=== PATIENT | male | born 1960 | race Caucasian/White ===

== ENCOUNTER 2020-12-13 09:10 | Inpatient (IN) | payer OTHER, SELFPAY ==
[~2020-12-13] VITALS: Ht 182.9 cm; Wt 122.5 kg
[2020-12-13 09:20] VITALS: BP_SYST 160
--- NOTE | 2020-12-13 09:30 | NUR ---
Placed in room 6 . Placed on engine monitor, blood pressure machine and pulse oximeter. To gown for exam. Side rails up. Report given to MARCOS Chauhan.
--- NOTE | 2020-12-13 09:36 | NUR ---
PT COMES FROM HOME FOR INCREASED SOB SINCE Dec, REPORTS GENERALIZED WEAKNESS AND FEELING TIRED. PT TACHYPNIC AT 26BREATHS/MIN, ON RA @88%, PLACED ON 02-8L VIA NC @ 93%. RT AT BEDSIDE, DR MONSON INFORMED. COVID CLAIRE TEST DONE, TOLERATED WELL. DENIES ANY FEVERS/CHILLS. SKIN W/D/I. WILL CONT TO MONITOR CLOSELY.
--- NOTE | 2020-12-13 09:43 | NUR ---
DR MONSON AT BEDSIDE FOR EXAM
--- NOTE | 2020-12-13 10:02 | NUR ---
IV PLACED-PATENT TO LT AC, FLUSHED 10CC. TOLERATED WELL.
[2020-12-13 10:30] LABS: BASOPHILS % (AUTO) 0.2 % (0.0-2.0); EOSINOPHILS % (AUTO) 0.1 % (0.0-4.0); HEMATOCRIT 45.2 % (36-54); HEMOGLOBIN 15.2 g/dL (14.0-18.0); LYMPHOCYTES # (AUTO) 0.9 K/uL (1.0-5.5); MEAN CORPUSCULAR HEMOGLOBIN 30 pg (27-31); MEAN CORPUSCULAR HGB CONC 34 % (32-36); MEAN CORPUSCULAR VOLUME 90 fL (79.0-98.0); MONOCYTES # (AUTO) 0.5 K/uL (0.0-1.0); MONOCYTES % (AUTO) 9.6 % (1.7-9.3); NEUTROPHILS # (AUTO) 3.7 K/uL (1.8-7.7); NEUTROPHILS % (AUTO) 73.1 % (40.0-70.0); PLATELET COUNT (AUTO) 150 K/uL (130-430); RED CELL DISTRIBUTION WIDTH 14.4 % (9.0-15.0); WHITE BLOOD COUNT (AUTO) 5.1 K/uL (4.8-10.8)
[2020-12-13 10:47] LABS: CALCIUM 8.2 mg/dL (8.4-11.0); CREATININE 0.96 mg/dL (0.55-1.30); POTASSIUM 4.1 mmol/L (3.5-5.1)
[2020-12-13 10:51] LABS: ALBUMIN 2.9 g/dL (3.4-4.8); TOTAL BILIRUBIN 0.4 mg/dL (0.0-1.0)
[2020-12-13 10:59] LABS: INR 0.9 (0.80-1.20); PROTHROMBIN TIME 9.9 SECS (9.5-12.5)
[2020-12-13 11:14] LABS: C-REACTIVE PROTEIN QUANT 13.1 mg/dL (0-0.5)
--- NOTE | 2020-12-13 11:23 | NUR ---
CA;LED AND I GAVVE HER AN UPDATE. EVA CHUNG.
--- NOTE | 2020-12-13 12:06 | NUR ---
NO ACUTE CHANGES , PT AWARE OF PLAN OF CARE, VERBALIZED UNDERSTANDING. VSS, DENIES ANY SOB AT THSI TIME. ON O2-8L VIA NC @ 92%
[2020-12-13] MEDS ORDERED: IPRATROPIUM BROM 0.5 MG/2.5 ML VIAL.NEB (ATROVENT) INH PRN ×2 (12:45→14:00)
[2020-12-13] MEDS ORDERED: ALBUTEROL SULFATE 0.083% 2.5 MG/3 ML VIAL.NEB INH PRN ×2 (12:45→14:00)
--- NOTE | 2020-12-13 12:52 | NUR ---
Transfer to TELE via ACLS protocol. Licensed nurse present. IV present no signs or symptoms of infiltration.
[2020-12-13 13:00] VITALS: BP_SYST 149
[2020-12-13] MEDS ORDERED: IPRATROPIUM BROM 0.5 MG/2.5 ML VIAL.NEB (ATROVENT) INH SCH (13:00)
[2020-12-13] MEDS ORDERED: ALBUTEROL SULFATE 0.083% 2.5 MG/3 ML VIAL.NEB INH SCH (13:00)
--- NOTE | 2020-12-13 13:05 | NUR ---
CONSULTATION PAGED REASON FOR CONSULTATION::COVID WAS CONSULT CALLED?Y PERSON WHO WAS NOTIFIED: MAREK CONSULTING PHYSICIAN:JUAN CARLOS MARVIN JAVA J2EE TECHNICAL LEAD SPECIALTY:INFECTIOUS DIASEASE JAVA J2EE TECHNICAL LEAD PHONE NUMBER:[phone] REQUESTING PHYSICIAN:ROWAN BRADFORD
--- NOTE | 2020-12-13 13:13 | NUR ---
CONSULTATION PAGED REASON FOR CONSULTATION::PNEUMONIA WAS CONSULT CALLED?Y PERSON WHO WAS NOTIFIED: BRYAN CONSULTING PHYSICIAN:LISA BROOKE CAR RETARDER OPERATOR SPECIALTY:PULMONARY CAR RETARDER OPERATOR PHONE NUMBER:[phone] REQUESTING PHYSICIAN:ROWAN BRADFORD
--- NOTE | 2020-12-13 13:37 | NUR ---
Admission Note Received patient from ER with diagnosis of COVID PNA. Initial Plan of Care discussed-patient verbalized understanding.. Oriented to room, call light, pain management and safety. vitsls stable.. on oxygen 8 l simple mask saturation 94%. denies any sob at this time.res even and unlabored.safety fall precautions in place. bed locked and in low position. bed alarm on. will continue to monitor
[2020-12-13 14:00] VITALS: BP_SYST 128
[2020-12-13] MEDS: DEXAMETHASONE SOD PHOSPHATE 10 MG/ML VIAL IVP SCH (14:15)
[2020-12-13] MEDS: cefTRIAXone 1 GM in D5W 50 ML IV SCH (14:15)
[2020-12-13] MEDS: AZITHROMYCIN 500 MG in NS 250 ML IV SCH (14:35)
[2020-12-13] MEDS ORDERED: ALBUTEROL MDI INHALATION 8 GM INH INH PRN (14:45)
--- NOTE | 2020-12-13 15:00 | NUR ---
rounds pt stable continue on 8 l simple mask . saturation 93%. encouraged deep breathing. kept comfortable. pt son called updated with pt status.. kept comfortable.not in acute res distress. will conitnue to monitor
[2020-12-13 16:30] VITALS: BP_SYST 146
[2020-12-13] MEDS ORDERED: ENOXAPARIN SODIUM 40 MG/0.4 ML SYRINGE SUBCUT ONE (16:30)
--- NOTE | 2020-12-13 16:40 | NUR ---
MD CALLED CALLED DR GOODE AND INFORMED ABOUT PT STATUS.NEW ORDER RECEIVED
--- NOTE | 2020-12-13 17:30 | NUR ---
ROUNDS PT STABLE DENIES ANY PAIN OR SOB. PTIS EATING .PT PLACED ON HIGH FLOW BY RT KEHINDE FI02 60 %. O2 SATURATION 93%. KEPT COMFORTABLE. DUE MEDS GIVEN ORDERED. KEPT COMFORTABLE
--- NOTE | 2020-12-13 17:40 | NUR ---
HIGH ALERT NOTE: Called Dr. GOODE back at identified within the medical roster to verify physician authenticity.
[2020-12-13] MEDS: ALBUTEROL MDI INHALATION 8 GM INH INH SCH (17:50)
[2020-12-13] MEDS ORDERED: ATEN-41 PO (17:56)
--- NOTE | 2020-12-13 19:46 | NUR ---
CLOSING NOTES PT STABLE NOT IN ACUTE DISTRESS. CONTINUE ON HIGH FLOW 60% SATURATION 93%. PT COMFORTABLE. DR ALVAREZ BEEN NOTIFIED BY DIRECTOR EXECUTIVE COMMUNICATIONS NURSE FOR HIGH FLOW OXYGEN..NO S/ S OF RES DISTRESS NOTED. SAFETY/FALL PRECAUTIONS IN PLACE. REPORT GIVEN TO NIGHT NURSE.
[2020-12-13 20:00] VITALS: BP_SYST 147
--- NOTE | 2020-12-13 20:00 | NUR ---
Opening notes/MD killian Pt AAOx4, O2 sat 91-92% on high flow 60%. No s/s distress noted. Dr. Mir killian. Pt instructed on I.S. use 10xhr while awake, pt verbalized understanding. IV saline lock L. AC 20G clear and patent. Call light within reach. Bed low, locked, siderails up x2. Droplet isolation maintained. To monitor.
[2020-12-13] MEDS ORDERED: NOR10 PO (20:46)
[2020-12-13] MEDS: ASCORBIC ACID 500 MG TABLET PO SCH (20:49)
--- NOTE | 2020-12-13 21:30 | NUR ---
Received call from Received call from pt's Gianni updated.
[2020-12-14] VITALS: BP_SYST 140
[2020-12-14] MEDS: ALBUTEROL MDI INHALATION 8 GM INH INH SCH ×4 (00:40→17:24)
--- NOTE | 2020-12-14 01:35 | NUR ---
Rounds Pt asleep, oxygen on. No s/s distress noted. Call light within reach. Bed low, locked, siderails up x2. To monitor.
--- NOTE | 2020-12-14 02:15 | NUR ---
Ambulated to bathroom Assisted pt to ambulate to bathroom on simple face mask 8L, O2 desat to 85% SOB upon returning to bed. Pt had a BM. O2 sat back up to 92% on high flow. Call light within reach. To monitor.
--- NOTE | 2020-12-14 06:25 | NUR ---
Closing notes Pt AAOx4, O2 sat 90-93% on high flow 60%. No s/s distress noted. IV saline locked L. AC 20G clear and patent. Urinal at bedside. Call light within reach. To endorse to AM nurse.
[2020-12-14 08:00] VITALS: BP_SYST 147
--- NOTE | 2020-12-14 08:00 | NUR ---
A/Ox4,afebrile,vss,on high flow nasal cannula 60%,sat 92,sitting on edge of bed, needs attended,call light & personal items within pt reach,safety maintained.
[2020-12-14] MEDS: ENOXAPARIN SODIUM 40 MG/0.4 ML SYRINGE SUBCUT SCH ×2 (08:52→20:19)
[2020-12-14] MEDS: ASCORBIC ACID 500 MG TABLET PO SCH ×2 (08:53→20:18)
[2020-12-14] MEDS: BARICITINIB -Non-Formulary 2 MG TABLET PO SCH (08:53)
[2020-12-14] MEDS: CHOLECALCIFEROL (VITAMIN D3) 5,000 UNIT TABLET PO SCH (08:56)
--- NOTE | 2020-12-14 10:00 | NUR ---
give am meds due,pt tolerated and compliant of meds well.desat to 85% dillon wheeler called and notified,orders received and noted.
[2020-12-14 12:00] VITALS: BP_SYST 127
--- NOTE | 2020-12-14 12:00 | NUR ---
vss,pt resting in bed,instructed pt use of incentive spirometry and pt inhaled 500-750ml volume hourly rounds made,safety maintainted.
[2020-12-14] MEDS: DEXAMETHASONE SOD PHOSPHATE 10 MG/ML VIAL IVP SCH (13:09)
[2020-12-14] MEDS: cefTRIAXone 1 GM in D5W 50 ML IV SCH (13:09)
--- NOTE | 2020-12-14 14:00 | NUR ---
GIVE IV ANTIBIOTIC DUE,NO ADVERSE REACTIONS NOTED,PIV 20 GUAGE IN LEFT ANTECUBITAL REMAINS PATENT AND INTACT.
[2020-12-14] MEDS: AZITHROMYCIN 500 MG in NS 250 ML IV SCH (14:35)
[2020-12-14 16:00] VITALS: BP_SYST 140
[2020-12-14 20:05] VITALS: BP_SYST 133
--- NOTE | 2020-12-14 20:10 | NUR ---
Opening notes Pt AAOx4, O2 sat 95% on high flow 70%. No s/s distress noted. Pt instructed on I.S. use 10xhr while awake, pt verbalized understanding. IV saline lock L. AC 20G clear and patent. Call light within reach. Bed low, locked, siderails up x2. Droplet isolation maintained. To monitor.
[2020-12-15 00:15] VITALS: BP_SYST 145
--- NOTE | 2020-12-15 00:15 | NUR ---
Ambulated to bathroom Pt to ambulate to bathroom on simple face mask 8L, O2 desat to 85% SOB upon returning to bed. O2 sat back up to 92% on high flow. Pt had a BM. Call light within reach. To monitor.
--- NOTE | 2020-12-15 05:47 | NUR ---
Sancho Moy s/w [place]. MARCOS Grant spoke to
--- NOTE | 2020-12-15 06:30 | NUR ---
Closing notes Pt awake, sitting up at edge of bed, no s/s distress noted. Pt on high flow O2 satting at 92-95%. IV saline locked L. AC clear and patent. Call light within reach. To endorse to AM nurse.
[2020-12-15] MEDS: ALBUTEROL MDI INHALATION 8 GM INH INH SCH ×3 (07:26→18:00)
[2020-12-15 07:35] LABS: ALBUMIN 3.1 g/dL (3.4-4.8); C-REACTIVE PROTEIN QUANT 6.1 mg/dL (0-0.5); CALCIUM 8.4 mg/dL (8.4-11.0); CREATININE 0.96 mg/dL (0.55-1.30); POTASSIUM 4.1 mmol/L (3.5-5.1); TOTAL BILIRUBIN 0.4 mg/dL (0.0-1.0)
[2020-12-15 08:00] VITALS: BP_SYST 132
[2020-12-15] MEDS: BARICITINIB -Non-Formulary 2 MG TABLET PO SCH (08:42)
[2020-12-15] MEDS: ASCORBIC ACID 500 MG TABLET PO SCH ×2 (08:42→21:11)
[2020-12-15] MEDS: CHOLECALCIFEROL (VITAMIN D3) 5,000 UNIT TABLET PO SCH (08:42)
[2020-12-15] MEDS: ENOXAPARIN SODIUM 40 MG/0.4 ML SYRINGE SUBCUT SCH ×2 (08:44→21:11)
[2020-12-15] MEDS: cefTRIAXone 1 GM in D5W 50 ML IV SCH (12:51)
[2020-12-15] MEDS: DEXAMETHASONE SOD PHOSPHATE 10 MG/ML VIAL IVP SCH (12:52)
[2020-12-15 12:58] VITALS: BP_SYST 139
[2020-12-15] MEDS: AZITHROMYCIN 500 MG in NS 250 ML IV SCH (14:54)
[2020-12-15 16:52] VITALS: BP_SYST 135
--- NOTE | 2020-12-15 19:24 | NUR ---
CLOSING NOTE PT A/OX4,DESAT 88% THIS AM AND INCREASED O2 HFNC TO 80% FIO2,SAT UP TO 95% NEEDS ATTENDED,CALL LIGHT & PERSONAL ITEMS WITHIN PT REACH,SAFETY MAINTAINED PIV 20 GAUGE IN LEFT ANTECUTIBAL PATENT AND INTACT,BUT GETS POSITIONAL WITH IV MEDS INFUSION.START ANOTHER IV IN RIGHT HAND 20 GAUGE X1 ATTEMPT.AND CONTINUE IV ANTIBIOTICS DUE,NO ADVERSE REACTIONS NOTED.HOURLY ROUNDS MADE,CONTINUE TO MONITOR PT.
[2020-12-15 20:00] VITALS: BP_SYST 143
--- NOTE | 2020-12-15 22:00 | NUR ---
ROUNDING NOTES Patient resting in bed - no s/s pain or distress noted. Respirations even and unlabored - head of bed elevated HI FLOW 80%. IV site patent - no s/s redness, infection, or infiltration. Bed locked and in lowest position. Call light within reach.
[2020-12-16 00:30] VITALS: BP_SYST 149
[2020-12-16] MEDS: ALBUTEROL MDI INHALATION 8 GM INH INH SCH ×4 (07:20→20:28)
[2020-12-16 08:09] LABS: ALBUMIN 2.9 g/dL (3.4-4.8); CALCIUM 8.8 mg/dL (8.4-11.0); CREATININE 0.82 mg/dL (0.55-1.30); POTASSIUM 3.8 mmol/L (3.5-5.1); TOTAL BILIRUBIN 0.4 mg/dL (0.0-1.0)
[2020-12-16] MEDS: CHOLECALCIFEROL (VITAMIN D3) 5,000 UNIT TABLET PO SCH (08:27)
[2020-12-16] MEDS: ASCORBIC ACID 500 MG TABLET PO SCH ×2 (08:27→20:19)
[2020-12-16] MEDS: BARICITINIB -Non-Formulary 2 MG TABLET PO SCH (08:28)
[2020-12-16 08:34] VITALS: BP_SYST 129
[2020-12-16] MEDS: ENOXAPARIN SODIUM 40 MG/0.4 ML SYRINGE SUBCUT SCH ×2 (08:45→20:26)
[2020-12-16 09:48] VITALS: BP_SYST 129
[2020-12-16 11:42] VITALS: BP_SYST 150
[2020-12-16] MEDS: DEXAMETHASONE SOD PHOSPHATE 10 MG/ML VIAL IVP SCH (13:04)
[2020-12-16] MEDS: cefTRIAXone 1 GM in D5W 50 ML IV SCH (13:04)
--- NOTE | 2020-12-16 13:08 | NUR ---
Dietitian Recommendations * Recommend 2 gm Na diet w/ Ensure High Protein BID (ONS provides 320 kcal/day, 32 gm protein/day) MARCELA, ETSS Please refer to Nutrition Assessment for details. Addendum: 12/16/20 at [address] Amended: Links added.
--- NOTE | 2020-12-16 13:11 | NUR ---
MEDICATION PATIENTS SCHEDULED MEDICATION GIVEN PER ORDER. PATIENT IS AWAKE AND ALERT STILL HAVING SOB. PATIENT IS ON HIGH FLOW AT 80% PATIENT STATES HE IS USING IS GETS TO ABOUT 1000. PATIENT ALSO STATES HE DOES STAND AT BED SIDE FOR SHORT PERIODS, SITS AT EDGE OF BED. ALL SAFETY PRECAUTIONS IN PLACE. CALL LIGHT IS WITH HIM EDUCATED TO USE FOR ASSISTANCE.
[2020-12-16] MEDS: AZITHROMYCIN 500 MG in NS 250 ML IV SCH (15:02)
--- NOTE | 2020-12-16 15:08 | NUR ---
medication patients scheduled medication given per order. patient is awake and alert, still has some sob,but spo2 is 91%. patient has all safety precautions in place. call light is with him. no other needs at this time.
[2020-12-16 16:52] VITALS: BP_SYST 147
--- NOTE | 2020-12-16 18:46 | NUR ---
RN CLOSING NOTE PATIENT IS AWAKE AND ALERT SITTING UP IN BED. PATIENT HAS ALL SAFETY PRECAUTIONS IN PLACE. EDUCATED TO USE CALL LIGHT FOR ASSISTANCE. CALL LIGHT IS WITH HIM. PATIENT IS ON HIGH FLOW OXYGEN AT 80%. PATIENT HAS NO OTHER NEEDS AT THIS TIME.
[2020-12-16 20:00] VITALS: BP_SYST 140
[2020-12-17 00:37] VITALS: BP_SYST 135
--- NOTE | 2020-12-17 01:59 | NUR ---
REPLACED BATTERY FOR MONITOR . PATIENT DENIED SHORTESS OF BREATH, NO APPARENT SIGN OF DISTRESS
--- NOTE | 2020-12-17 02:23 | NUR ---
PT REFUSED TO USE THE COMMODE AND INSISTED ON WALKING TO THE BATHROOM . RN EXPLAINED THAT IT IS NOT SAFE TO WALK TO THE BATHROOM HIS OXYGEN LEVEL COULD DROP TOO LOW AND HE CAN PASSED OUT IN THE BATHROOM. HE INSITED TO DO AND REFUSED TO USE THE COMMODE FOR BM
[2020-12-17 07:24] LABS: HEMATOCRIT 44.3 % (36-54); HEMOGLOBIN 15.2 g/dL (14.0-18.0); LYMPHOCYTES # (AUTO) 0.9 K/uL (1.0-5.5); LYMPHOCYTES % (AUTO) 9.9 % (20.5-51.5); MEAN CORPUSCULAR HEMOGLOBIN 30 pg (27-31); MEAN CORPUSCULAR HGB CONC 34 % (32-36); MEAN CORPUSCULAR VOLUME 89 fL (79.0-98.0); MONOCYTES # (AUTO) 0.6 K/uL (0.0-1.0); MONOCYTES % (AUTO) 7.1 % (1.7-9.3); NEUTROPHILS # (AUTO) 7.2 K/uL (1.8-7.7); PLATELET COUNT (AUTO) 332 K/uL (130-430); RED BLOOD CELL COUNT(AUTO) 5.01 MIL/uL (4.2-6.2); RED CELL DISTRIBUTION WIDTH 13.8 % (9.0-15.0); WHITE BLOOD COUNT (AUTO) 8.6 K/uL (4.8-10.8)
[2020-12-17] MEDS: ALBUTEROL MDI INHALATION 8 GM INH INH SCH ×3 (07:46→19:46)
[2020-12-17 08:30] VITALS: BP_SYST 130
[2020-12-17 08:32] LABS: CREATININE 0.92 mg/dL (0.55-1.30); POTASSIUM 4.3 mmol/L (3.5-5.1); TOTAL BILIRUBIN 0.4 mg/dL (0.0-1.0)
[2020-12-17] MEDS: CHOLECALCIFEROL (VITAMIN D3) 5,000 UNIT TABLET PO SCH (08:50)
[2020-12-17] MEDS: ENOXAPARIN SODIUM 40 MG/0.4 ML SYRINGE SUBCUT SCH ×2 (08:50→20:42)
[2020-12-17] MEDS: ASCORBIC ACID 500 MG TABLET PO SCH ×2 (08:50→20:28)
--- NOTE | 2020-12-17 08:50 | NUR ---
Scheduled medications given per order. Patient stable; sitting on side of bed with no distress noted.
[2020-12-17] MEDS: BARICITINIB -Non-Formulary 2 MG TABLET PO SCH (10:03)
--- NOTE | 2020-12-17 10:04 | NUR ---
Scheduled medication given. Patient stable at this time.
[2020-12-17 12:40] VITALS: BP_SYST 136
[2020-12-17] MEDS: cefTRIAXone 1 GM in D5W 50 ML IV SCH (12:57)
[2020-12-17] MEDS: DEXAMETHASONE SOD PHOSPHATE 10 MG/ML VIAL IVP SCH (12:57)
--- NOTE | 2020-12-17 12:58 | NUR ---
Scheduled IV abx and IVP medications given per order. Patient stable; resting comfortably in bed with no respiratory distress noted.
[2020-12-17 14:28] LABS: C-REACTIVE PROTEIN QUANT 1.4 mg/dL (0-0.5)
[2020-12-17] MEDS: AZITHROMYCIN 500 MG in NS 250 ML IV SCH (14:56)
--- NOTE | 2020-12-17 14:56 | NUR ---
Scheduled IV abx given per order. Patient sitting on side of bed at this time. Stable with no distress noted.
[2020-12-17 16:05] VITALS: BP_SYST 138
--- NOTE | 2020-12-17 17:45 | NUR ---
Scheduled IV medication given per order. Patient stable; resting comfortably in bed at this time.
--- NOTE | 2020-12-17 18:12 | NUR ---
Patient stable throughout shift.
[2020-12-17 20:42] VITALS: BP_SYST 141
--- NOTE | 2020-12-17 22:00 | NUR ---
Rounds Patient sleeping to the side on high flow oxygen oxygen saturation 95% , no sign of acute respiratory distress
[2020-12-18] MEDS: ALBUTEROL MDI INHALATION 8 GM INH INH SCH ×4 (00:49→23:07)
[2020-12-18 01:25] VITALS: BP_SYST 127
--- NOTE | 2020-12-18 01:44 | NUR ---
Rounds Patient sleeping NSB on the monitor oxygen saturation on high flow 70% is 95%,no SOB will continue to monitor
--- NOTE | 2020-12-18 04:05 | NUR ---
Patient is awake sitting in the edge of the bed slept well as verbalized no SOB oxygen saturation 95 to 96% on Hi flow 70% will monitor.
[2020-12-18 08:00] VITALS: BP_SYST 140
--- NOTE | 2020-12-18 08:00 | NUR ---
Morning rounds: PATIENT IS AWAKE AND ALERT SITTING UP IN BED. PATIENT HAS ALL SAFETY PRECAUTIONS IN PLACE. EDUCATED TO USE CALL LIGHT FOR ASSISTANCE. CALL LIGHT IS WITH HIM. PATIENT IS ON HIGH FLOW OXYGEN AT 70%. BREAKFAST AT BEDSIDE. PATIENT HAS NO OTHER NEEDS AT THIS TIME.
[2020-12-18] MEDS: CHOLECALCIFEROL (VITAMIN D3) 5,000 UNIT TABLET PO SCH (09:47)
[2020-12-18] MEDS: ASCORBIC ACID 500 MG TABLET PO SCH ×2 (09:47→20:29)
[2020-12-18] MEDS: ENOXAPARIN SODIUM 40 MG/0.4 ML SYRINGE SUBCUT SCH ×2 (09:54→20:29)
[2020-12-18 10:37] LABS: ALBUMIN 2.8 g/dL (3.4-4.8); CALCIUM 8.5 mg/dL (8.4-11.0); CREATININE 0.94 mg/dL (0.55-1.30); POTASSIUM 3.9 mmol/L (3.5-5.1); TOTAL BILIRUBIN 0.5 mg/dL (0.0-1.0)
[2020-12-18] MEDS: BARICITINIB -Non-Formulary 2 MG TABLET PO SCH (11:29)
[2020-12-18 12:00] VITALS: BP_SYST 132
--- NOTE | 2020-12-18 12:00 | NUR ---
Lunch rounds: PATIENT IS AWAKE AND ALERT SITTING UP IN BED. PATIENT HAS ALL SAFETY PRECAUTIONS IN PLACE. EDUCATED TO USE CALL LIGHT FOR ASSISTANCE. CALL LIGHT IS WITH HIM. PATIENT IS ON HIGH FLOW OXYGEN AT 60%, SPO2 96%. PATIENT HAS NO OTHER NEEDS AT THIS TIME.
--- NOTE | 2020-12-18 12:20 | NUR ---
RN rounds: replaced all dot stickers on pt, and checked monitor. pt resting in bed.
--- NOTE | 2020-12-18 12:28 | NUR ---
INFORMED MARCOS BANG THAT THE PATIENT HAS BEEN OFF THE TELE MONITOR SINCE 11:49
[2020-12-18] MEDS: DEXAMETHASONE SOD PHOSPHATE 10 MG/ML VIAL IVP SCH (13:29)
[2020-12-18] MEDS: cefTRIAXone 1 GM in D5W 50 ML IV SCH (13:30)
--- NOTE | 2020-12-18 14:46 | NUR ---
RN rounds: Reconfirmed, leads in place, attached to pt, and monitor checked.
[2020-12-18 16:00] VITALS: BP_SYST 124
--- NOTE | 2020-12-18 18:04 | NUR ---
CLOSING ROUNDS: PATIENT IS AWAKE AND ALERT SITTING UP IN BED EATING DINNER. PATIENT HAS ALL SAFETY PRECAUTIONS IN PLACE. EDUCATED TO USE CALL LIGHT FOR ASSISTANCE. CALL LIGHT IS WITH HIM. PATIENT IS ON HIGH FLOW OXYGEN AT 55% SPO2 94. PATIENT HAS NO OTHER NEEDS AT THIS TIME.
--- NOTE | 2020-12-18 19:15 | NUR ---
OPENING NOTES Patient resting in bed - no s/s pain or distress noted. Respirations even and unlabored - head of bed elevated HF 55L @30%. IV site patent - no s/s redness, infection, or infiltration. Bed locked and in lowest position. Call light within reach Addendum: 12/18/20 at 2040 by Salvador Culver RN CORRECTION: 30L AT 55%
[2020-12-18 20:00] VITALS: BP_SYST 134
--- NOTE | 2020-12-18 22:00 | NUR ---
ROUNDING NOTES Patient resting in bed - no s/s pain or distress noted. Respirations even and unlabored - head of bed elevated high flow. IV site patent - no s/s redness, infection, or infiltration. Bed locked and in lowest position. Call light within reach
[2020-12-19] VITALS: BP_SYST 126
[2020-12-19] MEDS: ALBUTEROL MDI INHALATION 8 GM INH INH SCH ×2 (06:00→15:37)
[2020-12-19 08:00] VITALS: BP_SYST 138
--- NOTE | 2020-12-19 08:00 | NUR ---
Morning Rounds: Patient resting in bed - no s/s pain or distress noted. Respirations even and unlabored - head of bed elevated HF 50L @30%. IV site patent - no s/s redness, infection, or infiltration. Bed locked and in lowest position. Call light within reach
[2020-12-19] MEDS: ASCORBIC ACID 500 MG TABLET PO SCH ×2 (08:33→20:39)
[2020-12-19] MEDS: CHOLECALCIFEROL (VITAMIN D3) 5,000 UNIT TABLET PO SCH (08:33)
[2020-12-19] MEDS: ENOXAPARIN SODIUM 40 MG/0.4 ML SYRINGE SUBCUT SCH ×2 (08:33→20:40)
[2020-12-19] MEDS: BARICITINIB -Non-Formulary 2 MG TABLET PO SCH ×2 (08:34→13:15)
[2020-12-19 12:00] VITALS: BP_SYST 150
--- NOTE | 2020-12-19 12:00 | NUR ---
Lunch rounds: Patient resting in bed - no s/s pain or distress noted. Respirations even and unlabored - head of bed elevated HF 45L @30%. IV site patent - no s/s redness, infection, or infiltration. Bed locked and in lowest position. Call light within reach
[2020-12-19] MEDS: cefTRIAXone 1 GM in D5W 50 ML IV SCH (13:12)
[2020-12-19] MEDS: DEXAMETHASONE SOD PHOSPHATE 10 MG/ML VIAL IVP SCH (13:22)
[2020-12-19 14:21] LABS: CALCIUM 8.7 mg/dL (8.4-11.0); CREATININE 0.94 mg/dL (0.55-1.30); POTASSIUM 4.4 mmol/L (3.5-5.1)
[2020-12-19 14:22] LABS: ALBUMIN 2.8 g/dL (3.4-4.8); TOTAL BILIRUBIN 0.3 mg/dL (0.0-1.0)
--- NOTE | 2020-12-19 14:40 | NUR ---
RT note: RT informed RN that they titrated O2 from 45% to 40% and pt tolerating well.
[2020-12-19 16:00] VITALS: BP_SYST 143
[2020-12-19 18:44] VITALS: BP_SYST 150
--- NOTE | 2020-12-19 18:45 | NUR ---
Closing notes: Patient resting in bed - no s/s pain or distress noted. Respirations even and unlabored - head of bed elevated high flow at 35% and 30L, spo2 97%. IV site patent - no s/s redness, infection, or infiltration. Bed locked and in lowest position. Call light within reach.
[2020-12-19 20:00] VITALS: BP_SYST 120
--- NOTE | 2020-12-19 22:00 | NUR ---
ROUNDING NOTES Patient resting in bed - no s/s pain or distress noted. Respirations even and unlabored - head of bed elevated. IV site patent - no s/s redness, infection, or infiltration. Bed locked and in lowest position. Call light within reach.
[2020-12-20 00:35] VITALS: BP_SYST 123
[2020-12-20] MEDS: ALBUTEROL MDI INHALATION 8 GM INH INH SCH ×5 (06:38→18:00)
[2020-12-20 08:02] VITALS: BP_SYST 116
[2020-12-20] MEDS: ENOXAPARIN SODIUM 40 MG/0.4 ML SYRINGE SUBCUT SCH ×2 (09:16→20:44)
[2020-12-20] MEDS: ASCORBIC ACID 500 MG TABLET PO SCH ×2 (09:17→20:42)
[2020-12-20] MEDS: CHOLECALCIFEROL (VITAMIN D3) 5,000 UNIT TABLET PO SCH (09:17)
[2020-12-20] MEDS: BARICITINIB -Non-Formulary 2 MG TABLET PO SCH (09:20)
--- NOTE | 2020-12-20 11:02 | NUR ---
INITIAL ROUNDS LATE ENTRY FOR 08 Received pt AAOx4, no s/s resp distress, pt on hiflow O2 at 30/35% with SAO2 at 95%-spoke with RT and will try to titrate oxygen down to an oxymizer after patient is done with his breakfast. No c/o pain or discomfort. Pt on airborne and droplet isolation precautions for Covid 19+. Plan of care for the day reviewed with pt-he verbalized his understanding. Pain management, disease process, skin and safety discussed-teach back done. Call light within reach.
--- NOTE | 2020-12-20 11:08 | NUR ---
ROUNDS/OXYGEN Pt sitting up in bed with no c/o shortness of breath, pt now on Oxymizer with O2 at 3L. No c/o pain or discomfort. Needs met, call light within reach. All precautions remain in place.
[2020-12-20 12:05] VITALS: BP_SYST 140
[2020-12-20] MEDS: DEXAMETHASONE SOD PHOSPHATE 10 MG/ML VIAL IVP SCH (13:26)
[2020-12-20] MEDS: cefTRIAXone 1 GM in D5W 50 ML IV SCH (13:27)
[2020-12-20 16:31] VITALS: BP_SYST 127
--- NOTE | 2020-12-20 18:27 | NUR ---
CLOSING NOTE Pt sitting up in bed watching television, no c/o shortness of breath, tolerating O2 2L via NC with SAO2 95%. No c/o pain or discomfort. Airborne and droplet isolation precautions maintained throughout shift. Pt given fresh pitcher of ice water, needs met, call light within reach.
[2020-12-20 20:00] VITALS: BP_SYST 120
--- NOTE | 2020-12-20 20:13 | NUR ---
Cleared missed RT doses
[2020-12-21] VITALS (8 sets, daily range): BP systolic 100–159
[2020-12-21] MEDS: ALBUTEROL MDI INHALATION 8 GM INH INH SCH ×3 (00:10→12:00)
--- NOTE | 2020-12-21 07:45 | NUR ---
OPENING NOTE Received shift report from shift mgr RN. Patient currently resting in bed on 2 L NC and tolerating well. IV sites remains patent and saline-locked. Bed in lowest position and call light is within reach. Will continue to monitor.
[2020-12-21] MEDS: ASCORBIC ACID 500 MG TABLET PO SCH ×2 (08:43→20:38)
[2020-12-21] MEDS: ENOXAPARIN SODIUM 40 MG/0.4 ML SYRINGE SUBCUT SCH ×2 (08:43→20:40)
[2020-12-21] MEDS: CHOLECALCIFEROL (VITAMIN D3) 5,000 UNIT TABLET PO SCH (08:43)
[2020-12-21] MEDS: BARICITINIB -Non-Formulary 2 MG TABLET PO SCH (08:44)
[2020-12-21] MEDS: DEXAMETHASONE SOD PHOSPHATE 10 MG/ML VIAL IVP SCH (13:27)
--- NOTE | 2020-12-21 15:00 | NUR ---
RN NOTE Patient resting in bed and respirations remain even and non-labored. Currently on 2 L NC and tolerating well. Pulse oxygenation remains above 95%. All other vital signs are stable. All needs met. Will continue to monitor. Addendum: 12/21/20 at 1637 by Ivana Fernando RN Both IV sites remain patent and saline-locked. Bed in lowest position and call light remains within reach.
--- NOTE | 2020-12-21 18:35 | NUR ---
CLOSING NOTE Patient currently eating dinner in bed. Respirations remain even and non-labored on 2 L nasal cannula. Patient is tolerating oxygen well and vital signs remain within normal limits. IV sites remain patent and saline-locked. Bed locked in lowest position and call light is within reach. Will endorse to twine reeling machine operator RN.
--- NOTE | 2020-12-21 20:05 | NUR ---
recieved pt from AM shift. Pt is covid +, aox4, ambulatory. Pt has BRP, and is able to articulate self. Pt laying in bed comfortably. VSS, pt hr is 45-55 sustained while asleep. When pt is awoken, HR is at 60 -70 sustained. Respirations remain even and non-labored on 2 L nasal cannula. Patient is tolerating oxygen well and vital signs remain within normal limits. IV sites remain patent and saline-locked. Bed locked in lowest position and call light is within reach. Will endorse to back tender paper machine RN Will continue to monitor through the night.
[2020-12-22] VITALS: BP_SYST 136
[2020-12-22] MEDS: ALBUTEROL MDI INHALATION 8 GM INH INH SCH ×4 (05:42→12:16)
--- NOTE | 2020-12-22 08:00 | NUR ---
MORNING ROUNDS: PATIENT AWAKE DURING ROUNDS,LYING ON THE BED. CONTACT DROPLET AND AIRBORNE PRECAUTION RENDERED.IV SALINE LOCK X2.O2 2L/NC,GOOD SATURATION.CALL LIGHT WITH IN REACH. BED LOCKED AT LOWEST POSITION. NO DISTRESS THIS TIME.
[2020-12-22] MEDS: ASCORBIC ACID 500 MG TABLET PO SCH (08:35)
[2020-12-22] MEDS: BARICITINIB -Non-Formulary 2 MG TABLET PO SCH (08:35)
[2020-12-22] MEDS: CHOLECALCIFEROL (VITAMIN D3) 5,000 UNIT TABLET PO SCH (08:37)
[2020-12-22] MEDS: ENOXAPARIN SODIUM 40 MG/0.4 ML SYRINGE SUBCUT SCH (08:37)
[2020-12-22 08:49] VITALS: BP_SYST 139
--- NOTE | 2020-12-22 10:30 | NUR ---
DC ORDER: DC HOME WITH HOME O2 2L/NC,CONTINUOUSLY FOR COVID 19 PNA.
[2020-12-22 10:58] LABS: BASOPHILS % (AUTO) 0.2 % (0.0-2.0); HEMATOCRIT 46.1 % (36-54); HEMOGLOBIN 15.4 g/dL (14.0-18.0); LYMPHOCYTES # (AUTO) 1.3 K/uL (1.0-5.5); LYMPHOCYTES % (AUTO) 11.5 % (20.5-51.5); MEAN CORPUSCULAR HEMOGLOBIN 30 pg (27-31); MEAN CORPUSCULAR HGB CONC 33 % (32-36); MEAN CORPUSCULAR VOLUME 89 fL (79.0-98.0); MONOCYTES # (AUTO) 1.2 K/uL (0.0-1.0); MONOCYTES % (AUTO) 10.3 % (1.7-9.3); NEUTROPHILS # (AUTO) 9.1 K/uL (1.8-7.7); PLATELET COUNT (AUTO) 389 K/uL (130-430); RED BLOOD CELL COUNT(AUTO) 5.19 MIL/uL (4.2-6.2); RED CELL DISTRIBUTION WIDTH 14.5 % (9.0-15.0); WHITE BLOOD COUNT (AUTO) 11.6 K/uL (4.8-10.8)
[2020-12-22 11:09] LABS: CALCIUM 9.1 mg/dL (8.4-11.0); CREATININE 0.89 mg/dL (0.55-1.30)
[2020-12-22 11:14] LABS: ALBUMIN 2.9 g/dL (3.4-4.8); TOTAL BILIRUBIN 0.4 mg/dL (0.0-1.0)
[2020-12-22 11:37] VITALS: BP_SYST 136
[2020-12-22 12:00] VITALS: BP_SYST 129
--- NOTE | 2020-12-22 12:37 | NUR ---
HCP UPDATE: SPOKE WITH SUREKHA DOZIER MOBILE MARKETING SPECIALIST ,O2 SET UP ,WILL BE READY BETWEEN 3PM-7PM.
[2020-12-22] MEDS: DEXAMETHASONE SOD PHOSPHATE 10 MG/ML VIAL IVP SCH (13:12)
--- NOTE | 2020-12-22 15:00 | NUR ---
[facility] DELIVERY: AZALIA FROM [facility] DELIVERED ,HOME PORTABLE O2,CONCENTRATOR ,NASAL CANULA X3,WATER TRAP,HUMIDIFIER BOTTLE ,PULSE OXIMETER X1,AND CHART FOR RECORDING O2 SATURATION. RN WILL TEACH PT'S HOW TO TURNING MACHINE OPERATOR HELPER CONCENTRATOR AND O2 HOME USE. Addendum: 12/22/20 at 1807 by Michelle Paredes RN corrected above notes: Teach pt's how to operate concentrator and o2 home use.
[2020-12-22 16:16] VITALS: BP_SYST 135
--- NOTE | 2020-12-22 16:50 | NUR ---
D/C Patient Patient given medication reconciliation form and D/C instructions. Exit Care provided. Patient verbalized understanding. MD discussed with patient the results and treatment provided. Ambulatory with steady gait for discharge to home. Patient in stable condition, ID band removed. IV catheter removed, intact and dressing applied, no active bleeding. Patient educated on pain management. All belongings sent with patient.Patient's Gianni was instructed by charge nurse Kera how to operate concentrator and portable o2.Some nasal canula supplies and pulse oximetry also given to pt's home.
== END 2020-12-22 16:50 | disposition home or self-care (01) | DRG 871 ==
LOC: SED 09:10 → SMU 11:55 → STU 12:41
PROVIDERS: ADMIT Internal Medicine Hospice and Palliative Medicine; ATTEND Internal Medicine Hospice and Palliative Medicine
PROC: XW033E5 Introduction of Remdesivir Anti-infective into Peripheral Vein, Percutaneous Approach, New Technology Group 5 (ICD-10-PCS; principal; 2020-12-14)
DX: A41.89 Other specified sepsis (principal); U07.1 COVID-19; J12.82 Pneumonia due to coronavirus disease 2019; J96.01 Acute respiratory failure with hypoxia; E66.9 Obesity, unspecified; I10 Essential (primary) hypertension; I25.10 Atherosclerotic heart disease of native coronary artery without angina pectoris; Z68.36 Body mass index [BMI] 36.0-36.9, adult; Z79.899 Other long term (current) drug therapy
CPT/HCPCS: 36415; 36600; 71045; 80053; 82550; 82728; 82803-TC; 83605; 83615; 83880; 84484; 85025; 85379; 85384; 85610-TC; 85651-TC; 85730-TC; 86140; 87040-TC; 93005; 94010; 94640; 94664; 94760; 99285; J0456; J0696; J1100; J1650; J7050; J7060